=== PATIENT | female | born 1985 | race Caucasian/White ===

== ENCOUNTER 2017-06-26 07:11 | Day surgery (SDC) | payer OTHER ==
[2017-06-26] MEDS ORDERED: TYLENOL ARTHRI650 MG PO (12:06)
[2017-06-26] MEDS ORDERED: CIPRO500 MG PO (12:06)
== END 2017-06-26 15:25 | disposition home or self-care (01) ==
LOC: CIR.AMB 07:11
DX: D06.0 Carcinoma in situ of endocervix (principal)

== ENCOUNTER 2017-09-18 07:00 | Day surgery (SDC) | payer OTHER ==
[~2017-09-18] VITALS: Ht 162.6 cm; Wt 62.1 kg
[~2017-09-18 07:00] MED LIST: CIPRO500 MG PO; TYLENOL ARTHRI650 MG PO
[2017-09-19] MEDS ORDERED: PERCOCET 5-3251 EACH PO (08:27)
[2017-09-19] MEDS ORDERED: DICLOFENAC POTA50 MG PO (08:27)
[2017-09-19] MEDS ORDERED: COLACE100 MG PO (08:27)
[2017-09-19] MEDS ORDERED: CIPRO500 MG PO (08:27)
== END 2017-09-19 08:00 | disposition home or self-care (01) ==
LOC: CIR.AMB 07:00 → O/R 08:34 → SURH 08:34 → EDSTATUS 13:00 → SURG 19:09 → O/R 19:09 → CIR.AMB 09-19 08:00 → SURG 09-19 10:33 → O/R 09-19 10:33
DX: D06.7 Carcinoma in situ of other parts of cervix (principal); N72 Inflammatory disease of cervix uteri

== ENCOUNTER 2017-10-11 07:07 | Emergency (ER) | payer OTHER ==
[~2017-10-11] VITALS: Ht 162.6 cm; Wt 59.0 kg
[~2017-10-11 07:07] MED LIST changes: +COLACE100 MG PO; +DICLOFENAC POTA50 MG PO; +PERCOCET 5-3251 EACH PO
== END 2017-10-11 14:03 | disposition home or self-care (01) ==
LOC: ER 07:07
DX: K52.9 Noninfective gastroenteritis and colitis, unspecified (principal)